=== PATIENT | male | born 1980 | race Caucasian/White ===

== ENCOUNTER → 2016-04-24 | Outpatient (REF) ==
[~2016-04-24] MED LIST: ACIPHEX20 MG PO; DOXYCYCLINE 10100 MG PO; LANTUS100 U/ML; LOVASTATIN20 MG PO; NORCO 325 MG-7.1 TAB PO; NOVLOG SC; NOVOLOG 100U100 U/ML SQ; VASOTEC10 MG PO
== END ==
LOC: WSOH 13:00
DX: Z11.1 Encounter for screening for respiratory tuberculosis (principal)

== ENCOUNTER → 2016-11-05 | Outpatient (REF) | LOC: WSOH 17:45 | DX: Z02.89 Encounter for other administrative examinations (principal) ==